=== PATIENT | male | born 1980 | race Caucasian/White ===

== ENCOUNTER → 2019-03-15 | Outpatient (CLI) | payer OTHER ==
--- NOTE | 2019-03-22 22:37 | PFR/MVV ---
[facility] [address] [place] [address] PULMONARY FUNCTION MVV/REPORT Name: LISANDRO BRITO Room #: REG Pham Begum.#: [id number] Admission: 03/15/19 Attend Phys: [facility] - Family physician unknown Discharge: Date of : 76 Report #: [id number] THIS REPORT FOR: //name// >> SPIROMETRY: (BTPS) Height: 73 in cm Weight: 229 lbs kg Exam Date: 03/15/19 PRE-RX POST-RX PRED BEST %PRED BEST %PRED %CHG FVC LITERS . 5.56 . 5.73 . 103 . 5.14 . 92 . -10 FEV1 LITERS . 4.18 . 4.45 . 106 . 4.08 . 98 . -8 FEV1/FVC % . 75 . 78 . 104 . 79 . 106 . 2 LIF79-46% L/Sec . 4.14 . 4.11 . 99 . 4.21 . 102 . 3 PEF L/SEC . <1.00 . 0.92 . . 1.89 . . 107 FEF50/FIF50 UNITLESS . . . . . . MVV L/Min . 176 . 111 . 63 f 1/Min . . 155 . >> LUNG VOLUMES: (BTPS) PRE-RX POST-RX PRED AVG %PRED AVG %PRED %CHG VC Liters . 5.56 . 5.91 . 106 . . . TLC Liters . 7.68 . 6.97 . 91 . . . RV Liters . 2.24 . 1.06 . 48 . . . RV/TLC % . 30 . 15 . 50 . . . FRC PL Liters . 3.85 . 1.94 . 50 . . . FRC N2 Liters . 3.82 . . . . . ERV Liters . 1.85 . 0.88 . 48 . . . IC Liters . 3.69 . 5.30 . 144 . . . >> DIFFUSION: DLCO ml/Min/mmHg . 32.5 . 26.7 . 82 . . . DL Gina ml/Min/mmHg . 32.5 . 26.7 . 82 . . . DLCO/VA ml/Min/mmHg . 4.30 . 5.44 . 127 . . . VA Liters . 7.70 . 4.91 . 64 . . . COMMENTS: COMMENTS: >> RESISTANCE: [facility] [address] [place] [address] PULMONARY FUNCTION MVV/REPORT Name: LISANDRO BRITO Room #: REG LALO Neal#: [id number] Admission: 03/15/19 Attend Phys: [facility] - Family physician unknown Discharge: Date of : 76 Report #: [id number] PRE-RX PRED AVG %PRED Raw Total cmH20/L/Sec . . 4.11 . Raw Insp cmH20/L/Sec . . 0.54 . Raw Exp cmH20/L/Sec . . 0.73 . Raw cmH20/L/Sec . 1.14 . 6.32 . 552 Gaw L/Sec/cmH20 . 0.924 . 0.158 . 17 sRaw cmH20 Sec . 4.40 . 26.22 . 595 sGaw l/cmH20 Sec . 0.227 . 0.038 . 17 Vtq Liters . . 4.15 . # = OUTSIDE 95% CONFIDENCE INTERVAL CALIBRATION: PRED: 3.00 ACTUAL: EXP 3.01 INSP 3.02 [facility]-10-06 [facility]- N-[id number] >> INTERPRETATION/IMPRESSION: CC: JAYCOB DIORShirley CUMMINGSDAHLIA PULMONARY FUNCTION: FEV1 is 4.45 liters (106%), FVC is 5.73 liters (103%), FEV1/FVC is 78. No significant response to bronchodilator therapy. LUNG VOLUMES: Total lung capacity is 6.97 liters (91%). RV is 1.06 liters (48%). Diffusing capacity is 82%. IMPRESSION: Pulmonary function studies are consistent with normal pulmonary function. <ELECTRONICALLY SIGNED> By: Timi Cheng MD 03/22/19 2237 Timi Cheng MD /nt
== END ==
LOC: RAD 10:33 → PULREHAB 10:33 → RAD 13:59
DX: J98.4 Other disorders of lung (principal)